=== PATIENT | male | born 1960 ===

== ENCOUNTER 2018-05-27 07:30 | Inpatient (IN) | payer OTHER ==
[~2018-05-27] VITALS: Ht 165.1 cm; Wt 86.2 kg
[2018-07-21] MEDS ORDERED: TAMSULOSIN HCL0.4 MG ORAL (12:16)
[2018-07-22] VITALS (13 sets, daily range): BP systolic 119–149; BP diastolic 63–97
[2018-07-22] MEDS ORDERED: PROSCAR5 MG ORAL (06:52)
[2018-07-22 07:10] LABS: APPEARANCE,URINE CLEAR; BILIRUBIN, URINE NEGATIVE (NEGATIVE); GLUCOSE, URINE (UA) NEGATIVE (NEGATIVE); KETONES,URINE NEGATIVE (NEGATIVE); LEUKOCYTE ESTERASE ,URINE NEGATIVE (NEGATIVE); NITRITE,URINE NEGATIVE (NEGATIVE); PH,URINE 6 (4.5-8.0); PROTEIN,URINE 2+ (NEGATIVE); UROBILINOGEN,URINE NORMAL MG/DL (0.0-1.0)
--- NOTE | 2018-07-22 07:18 | Anethesia Preoperative Eval ---
Anesthesia Pre-op PMH/ROS General Date of Evaluation: Jul 22, 2018 Anesthesiologist: Fred ASA Score: ASA 2 Mallampati Score Class I : Soft palate, uvula, fauces, pillars visible Class II: Soft palate, uvula, fauces visible Class III: Soft palate, base of uvula visible Class IV: Only hard plate visible Mallampati Classification: Class II Surgeon: Dominique Diagnosis: Cervical disc herniation C3-4, C6-7 Surgical Procedure: C3-4 posterior decompression, possible C6-7 post decompression and fusion Anesthesia History: none Family History: no anesthesia problems Allergies: Coded Allergies: AVOCADO (Verified Allergy, Intermediate, 07/21/18) NAUSEA/VOMITING Medications: see eMAR Patient NPO?: Yes NPO Date: Jul 21, 2018 NPO Time: 22:00 Past Medical History Cardiovascular: Denies: HTN, CAD, [place], valve dz, arrhythmia, other Pulmonary: Denies: asthma, COPD, MAUDE, other Gastrointestinal/Genitourinary: Denies: GERD, CRI, ESRD, other Neurologic/Psychiatric: Reports: other - vertigo; Denies: dementia, CVA, depression/anxiety, TIA Endocrine: Denies: DM, hypothyroidism, steroids, other HEENT: Denies: cataract (L), cataract (R), glaucoma, TANGIRNAQ (L), TANGIRNAQ (R), other Hematology/Immune: Denies: anemia, DVT, bleeding disorder, other Musculoskeletal/Integumentary: Denies: OA, RA, DJD, DDD, edema, other PSxH Narrative: ex-lap, cervical sx Anesthesia Pre-op Phys. Exam Physician Exam see chart Constitutional: NAD Cardiovascular: RRR Respiratory: CTA Airway Exam Mallampati Score: Class II MO: full ROM: full Teeth: intact Anesthesia Pre-op A/P Labs see chart Studies Pre-op Studies: EKG - sr, CXR - no acute cardiopulmonary process Risk Assessment & Plan Assessment: ASA II Plan: GA Status Change Before Surgery: No Pre-Antibiotics Drug: Ancef 2g Given Within 1 Hr of Incision: Yes Aiyana Mas MD Jul 22, 2018 07:18
[2018-07-22] MEDS ORDERED: Thrombin 5000 units spray kit TOPIC ONE (07:19)
[2018-07-22] MEDS ORDERED: Bacitracin Oint 15gm Tube TOPIC ONE (07:19)
[2018-07-22] MEDS ORDERED: fentaNYL 100 mcg/2 mL IV ONE ×2 (07:19→07:31)
[2018-07-22] MEDS ORDERED: Bupivacaine 0.5% Inj 30 ml vial INJ ONE (07:20)
[2018-07-22] MEDS ORDERED: Bacitracin 50000 Units Vial ONE (07:20)
[2018-07-22] MEDS ORDERED: Bupivacaine w/Epi 0.5% 30ml Vial INJ ONE (07:20)
[2018-07-22] MEDS ORDERED: Thrombin 5000 units TOPIC ONE ×3 (07:20→07:40)
[2018-07-22 07:21] LABS: COLOR,URINE YELLOW
[2018-07-22] MEDS ORDERED: Gelfoam Size TOPIC ONE (07:21)
[2018-07-22] MEDS ORDERED: Gelfoam Absorbable 1gm powder pkt TOPIC ONE (07:21)
[2018-07-22] MEDS ORDERED: Succinylcholine 20mg/ml 10ml vial ONE (07:22)
[2018-07-22] MEDS ORDERED: Zemuron 50mg/5ml Inj IV ONE (07:22)
[2018-07-22] MEDS ORDERED: Sugammadex Sodium 200mg/2ml vial IV ONE (07:22)
[2018-07-22 07:24] LABS: BASOPHILS % (AUTO) 1.2 % (0.0-2.0); EOSINOPHILS % (AUTO) 10.9 % (0.0-3.0); HEMATOCRIT 39.1 % (42.0-52.0); HEMOGLOBIN 12.2 G/DL (14.2-18.0); LYMPHOCYTES % (AUTO) 20.6 % (20.0-45.0); MEAN CORPUSCULAR VOLUME 80 FL (80-99); MONOCYTES % (AUTO) 8.6 % (1.0-10.0); NEUTROPHILS % (AUTO) 58.7 % (45.0-75.0); PLATELET COUNT 244 K/UL (150-450); RED BLOOD COUNT 4.91 M/UL (4.70-6.10); RED CELL DISTRIBUTION WIDTH 13.5 % (11.6-14.8)
[2018-07-22 07:30] LABS: ANION GAP 8 mmol/L (5-15); BLOOD UREA NITROGEN 17 mg/dL (7-18); CALCIUM 8.7 MG/DL (8.5-10.1); CARBON DIOXIDE 25 MMOL/L (21-32); CHLORIDE 107 MMOL/L (98-107); CREATININE 0.9 MG/DL (0.55-1.30); POTASSIUM 3.9 MMOL/L (3.5-5.1); SODIUM 140 MMOL/L (136-145)
[2018-07-22] MEDS ORDERED: Propofol 1,000mg/ 100ml btl IV ONE (07:30)
[2018-07-22] MEDS ORDERED: Sterile Water Irrig 1000ml IRRIG ONE (07:30)
[2018-07-22] MEDS ORDERED: LR 1000ml ONE (07:30)
[2018-07-22] MEDS ORDERED: Lidocaine 1% MPF 10mg/ml 5ml ONE (07:31)
[2018-07-22] MEDS ORDERED: Midazolam 2mg/2ml Inj ONE (07:31)
[2018-07-22] MEDS ORDERED: Propofol 200mg/20ml IV ONE (07:31)
[2018-07-22] MEDS ORDERED: Dexamethasone 4mg/ml vial ONE (07:32)
[2018-07-22] MEDS ORDERED: Metoclopramide 10mg/2ml Inj ONE (07:32)
[2018-07-22] MEDS ORDERED: Lidocaine 1% Plain 30 ml INJ ONE ×2 (07:34→09:51)
--- NOTE | 2018-07-22 07:38 | Pre-Procedure Note/Attestation ---
Pre-Procedure Note/Attestation Complete Prior to Procedure Planned Procedure: not applicable Procedure Narrative: C3-4 post decompression and fusion and possible C6-7 decompression Indications for Procedure Pre-Operative Diagnosis: Cervical disc hernia Attestation I attest that I discussed the nature of the procedure; its benefits; risks and complications; and alternatives (and the risks and benefits of such alternatives ), prior to the procedure, with the patient (or the patient's legal apprenticeship representative). I attest that, if there was a reasonable possibility of needing a blood transfusion, the patient (or the patient's legal apprenticeship representative) was given the [facility] standardized written summary, pursuant to the Nitesh Felix Blood Safety Act ([place] Health and Safety Code # 1645, as amended). I attest that I re-evaluated the patient just prior to the surgery and that there has been no change in the patient's H&P, except as documented below: MEKHI GOODMAN Jul 22, 2018 07:38
[2018-07-22] MEDS ORDERED: NS Irrig 1000ml IRRIG ONE (08:04)
[2018-07-22] MEDS ORDERED: LORazepam Inj 2mg/ml 1ml IV PRN (09:00)
[2018-07-22] MEDS ORDERED: fentaNYL 100 mcg/2 mL IV PRN (09:00)
[2018-07-22] MEDS ORDERED: LR 1000ml 1,000 ML IVLG SCH (09:00)
[2018-07-22] MEDS ORDERED: Midazolam 2mg/2ml Inj IVP PRN (09:00)
[2018-07-22] MEDS ORDERED: DiphenhydrAMINE 50mg/ml Inj IVP PRN (09:00)
[2018-07-22] MEDS ORDERED: Hydromorphone 0.5mg/0.5ml inj IVP PRN (09:00)
--- NOTE | 2018-07-22 12:22 | Brief Operative Note ---
Immediate Post Operative Note Operative Note Chief Complaint: Cervical disc hernia Pre-op Diagnosis: Cervical disc hernia Procedure: C3-4 decompression fusion Post-op Diagnosis: same as pre-op Findings: consistent w/pre-op dx studies Surgeon: Yaniv Goodman Bin Filler: Claribel Noyola Anesthesiologist: Semaj Anesthesia: general Specimen: none Complications: none Condition: stable Fluids: See anesthesia rec Estimated Blood Loss: volume - 100 Drains: hemovac Implant(s) used?: Yes - RTI Screws and rods MEKHI GOODMAN Jul 22, 2018 12:22
[2018-07-22] MEDS ORDERED: Metoclopramide 10mg/2ml Inj IVP PRN (12:30)
--- NOTE | 2018-07-22 12:39 | Immediate Post-Op Evaluation ---
Immediate Post-Op Evalulation Immediate Post-Op Evalulation Procedure: C3-4 posterior decompression Date of Evaluation: Jul 22, 2018 Time of Evaluation: 12:39 IV Fluids: 2.3L Blood Products: 0 Estimated Blood Loss: 75 Urinary Output: 620 Blood Pressure Systolic: 119 Blood Pressure Diastolic: 67 Pulse Rate: 99 Respiratory Rate: 17 O2 Sat by Pulse Oximetry: 99 Temperature (Fahrenheit): 97 Pain Score (1-10): 0 Nausea: No Vomiting: No Complications 0 Patient Status: awake, reacts, patent, none Hydration Status: adequate Drug: Ancef 2g Given Within 1 Hr of Incision: Yes Aiyana Mas MD Jul 22, 2018 12:39
[2018-07-22] MEDS ORDERED: Tylenol #3 tab (300mg/30mg) ORAL PRN (13:15)
[2018-07-22] MEDS ORDERED: Chloraseptic Spray 20mL Bottle ORAL PRN (13:15)
[2018-07-22] MEDS ORDERED: HYDROcodone/Acetamin 10/325 tab ORAL PRN ×2 (13:15→16:15)
--- NOTE | 2018-07-22 14:26 | Diagnostic Imaging Report ---
INDICATION: Pain, intraoperative TECHNIQUE: Intraoperative imaging Fluoroscopy time: 27.5 seconds Total dose: 0.13167 mGym2 Total number of images: 5 COMPARISON: None FINDINGS: Intraoperative images demonstrate anterior fusion hardware bridging C4 and C5. Subsequent images demonstrate a surgical tool projected over the C3 spinous process. Subsequent images demonstrate posterior fusion hardware bridging C3 and C4 IMPRESSION: Intraoperative imaging, as described
--- NOTE | 2018-07-22 15:00 | NUR ---
NURSE NOTES: Patient is in bed asleep but arousable to verbal stimuli. Patient is stable and denies pain or SOB. Surgical site is clean, dry, and intact. Patient oriented to room, call light and nurses. Patient encouraged to use call light for assistance, verbalized understanding. Patient is on 3L oxygen via NC, tolerated well. Patient is in bed with call light within reach. All needs met at this time. Will continue to monitor.
--- NOTE | 2018-07-22 15:06 | NUR ---
CASE MANAGEMENT: INITIAL REVIEW 07/22/2018 58 YO M [facility] CC: NECK PAIN PMHx: EX LAP. CERVICAL SURGERY SI;CERVICAL DISC HERNIA. T 97.8 HR 76 RR 18 B/P 121/77 SATS 100% ON RA GLU 125 IS: IVF @ 75 mL/HR FLOMAX PO QHS PEPCID PO BID PROSCAR PO QD CEFAZOLIN IV Q8H PATIENT ADMITTED TO MED/SURG 07/22/2018 @ 1222 DCP: PATIENT TO BE DISCHARGED TO HOME ONCE MEDICALLY CLEARED. PLAN OF CARE: POST OP CARE PT EVAL Addendum: 07/22/18 at 1740 by Gisela Lorenz CM INTERQUAL
[2018-07-22] MEDS ORDERED: Hydromorphone 0.5mg/0.5ml inj SUBQ PRN (15:15)
[2018-07-22] MEDS: ceFAZolin sod 1 GM in D5W 55 ML IV SCH (16:43)
--- NOTE | 2018-07-22 18:15 | NUR ---
NURSE NOTES: Dr. Peace aware of fc removal. New orders to give flomax and finasteride x1. Will administer as ordered. Patient is stable, does not complain of pain or discomfort. Will continue to monitor.
[2018-07-22] MEDS: Docusate 100mg cap ORAL SCH (18:26)
[2018-07-22] MEDS: Bethanechol 25mg Tab ORAL SCH (18:26)
[2018-07-22] MEDS ORDERED: Tamsulosin 0.4mg cap ORAL SCH ×3 (18:30→21:00)
--- NOTE | 2018-07-22 19:16 | NUR ---
NURSE NOTES: hemovac is draining well throughout shift. 15:00= 0cc, 17:00=25cc, 19:00=35cc
--- NOTE | 2018-07-22 19:30 | NUR ---
HAND-OFF: Report given to Kulwant BERGERON. Patient is stable.
--- NOTE | 2018-07-22 19:45 | NUR ---
NURSE NOTES: Pt lying in bed w/bed in lowest position and call light within reach. Pt A&Ox4; VSS; neuro check stable; and in no apparent distress. IV site intact/asymptomatic w/IVF @ 75 ml/hr; surgical site stained but otherwise C/D/I; and hemovac intact/compressed. Will continue to monitor.
--- NOTE | 2018-07-22 21:07 | Consultation ---
History of Present Illness General Date patient seen: Jul 22, 2018 Time patient seen: 21:04 Present Illness Allergies: Coded Allergies: AVOCADO (Verified Allergy, Intermediate, 07/21/18) NAUSEA/VOMITING Medication History Scheduled Finasteride* (Proscar*), Unknown Dose ORAL DAILY, (Reported) Tamsulosin Hcl (Tamsulosin Hcl*), 0.4 MG ORAL BEDTIME, (Reported) Patient History Healthcare decision maker sam dickey - son Resuscitation status Full Code Advanced Directive on File Review of Systems Constitutional: Reports: no symptoms Eye: Reports: no symptoms ENT: Reports: other Genitourinary: Reports: no symptoms Musculoskeletal: Reports: other - has pain Physical Exam General Appearance: WD/WN HEENT: normocephalic Neck: other - has soft cervical collar Respiratory/Chest: lungs clear Cardiovascular/Chest: normal rate, regular rhythm Abdomen: normal bowel sounds, non tender, soft Extremities: other - no clubbing Neurologic: other - alert awware oriented Last 24 Hour Vital Signs Date Time Temp Pulse Resp B/P (MAP) Pulse Ox O2 Delivery O2 Flow Rate FiO2 07/22/18 20:00 97.1 66 17 129/63 (85) 98 07/22/18 16:00 98.0 107 15 145/97 (113) 100 07/22/18 15:00 97.8 105 16 146/97 (113) 96 07/22/18 14:40 97.2 19 139/87 99 Nasal Cannula 3 07/22/18 14:15 16 132/86 97 Nasal Cannula 3 07/22/18 14:00 18 121/91 98 Nasal Cannula 3 07/22/18 13:40 17 122/80 97 Nasal Cannula 3 07/22/18 13:20 17 147/94 100 Nasal Cannula 3 07/22/18 13:15 15 129/89 100 Nasal Cannula 3 07/22/18 13:00 16 149/90 99 Simple Mask 6 07/22/18 12:45 19 126/76 99 Simple Mask 6 07/22/18 12:39 99 17 99 07/22/18 12:34 97.0 17 119/67 99 Simple Mask 6 07/22/18 07:15 97.8 76 18 121/77 (92) 100 07/22/18 07:05 Room Air Intake and Output 07/21/18 07/22/18 18:59 06:59 # Voids 1 Laboratory Tests Test 07/22/18 06:30 07/22/18 07:06 Urine Color Yellow Urine Appearance Clear Urine pH 6 (4.5-8.0) Urine Specific [place] 1.020 (1.005-1.035) Urine Protein 2+ (NEGATIVE) H Urine Glucose (UA) Negative (NEGATIVE) Urine Ketones Negative (NEGATIVE) Urine Blood 1+ (NEGATIVE) H Urine Nitrite Negative (NEGATIVE) Urine Bilirubin Negative (NEGATIVE) Urine Urobilinogen Normal MG/DL (0.0-1.0) Urine Leukocyte Esterase Negative (NEGATIVE) Urine RBC 0-2 /HPF (0 - 0) H Urine WBC 0-2 /HPF (0 - 0) Urine Squamous Epithelial Cells Occasional /LPF Urine Bacteria Occasional /HPF (NONE) White Blood Count 8.0 K/UL (4.8-10.8) Red Blood Count 4.91 M/UL (4.70-6.10) Hemoglobin 12.2 G/DL (14.2-18.0) L Hematocrit 39.1 % (42.0-52.0) L Mean Corpuscular Volume 80 FL (80-99) Mean Corpuscular Hemoglobin 24.8 PG (27.0-31.0) L Mean Corpuscular Hemoglobin Concent 31.1 G/DL (32.0-36.0) L Red Cell Distribution Width 13.5 % (11.6-14.8) Platelet Count 244 K/UL (150-450) Mean Platelet Volume 7.2 FL (6.5-10.1) Neutrophils (%) (Auto) 58.7 % (45.0-75.0) Lymphocytes (%) (Auto) 20.6 % (20.0-45.0) Monocytes (%) (Auto) 8.6 % (1.0-10.0) Eosinophils (%) (Auto) 10.9 % (0.0-3.0) H Basophils (%) (Auto) 1.2 % (0.0-2.0) Prothrombin Time 10.7 SEC (9.30-11.50) Prothromb Time International Ratio 1.0 (0.9-1.1) Activated Partial Thromboplast Time 29 SEC (23-33) Sodium Level 140 MMOL/L (136-145) Potassium Level 3.9 MMOL/L (3.5-5.1) Chloride Level 107 MMOL/L (98-107) Carbon Dioxide Level 25 MMOL/L (21-32) Anion Gap 8 mmol/L (5-15) Blood Urea Nitrogen 17 mg/dL (7-18) Creatinine 0.9 MG/DL (0.55-1.30) Estimat Glomerular Filtration Rate > 60 mL/min (>60) Glucose Level 125 MG/DL (74-106) H Calcium Level 8.7 MG/DL (8.5-10.1) Height (Feet): 5 Height (Inches): 5.00 Weight (Pounds): 190 Medications Current Medications Medications (Trade) Dose Ordered Sig/Greg Route PRN Reason Start Time Stop Time Status Last Admin Dose Admin Acetaminophen/ Hydrocodone Bitart ([place] 10/325) 1 tab Q3H PRN ORAL Pain Scale (3-6) / fever 07/22/18 16:15 07/29/18 16:14 Al Hydroxide/Mg Hydroxide (Mylanta) 30 ml Q6H PRN ORAL GERD 07/22/18 13:15 08/21/18 13:14 Bethanechol Chloride (Urecholine) 25 mg THREE TIMES A DAY ORAL 07/22/18 18:00 08/21/18 17:59 07/22/18 18:26 Cefazolin Sodium 1 gm/Dextrose 55 ml @ 110 mls/hr Q8H IV 07/22/18 16:30 07/29/18 16:29 07/22/18 16:43 Dextrose/ Electrolytes 1,000 ml @ 75 mls/hr [id number] IV 07/22/18 15:00 08/21/18 14:59 07/22/18 15:36 Diphenhydramine HCl (Benadryl) 12.5 mg Q6H PRN ORAL Itching 07/22/18 16:00 08/21/18 15:59 Docusate Sodium (Colace) 100 mg TWICE A DAY ORAL 07/22/18 18:00 08/21/18 17:59 07/22/18 18:26 Famotidine (Pepcid) 20 mg BID ORAL 07/22/18 18:00 08/21/18 17:59 07/22/18 18:26 Finasteride (Proscar) 5 mg DAILY ORAL 07/23/18 09:00 4/6/19 08:59 Hydromorphone HCl (Dilaudid) 0.5 mg Q3H PRN SUBQ Severe Breakthru Pain (>7) 07/22/18 15:15 07/29/18 15:14 Metoclopramide HCl (Reglan) 10 mg Q6H PRN IVP Nausea & Vomiting 07/22/18 12:30 08/21/18 12:29 Ondansetron HCl (Zofran) 4 mg Q4H PRN IVP Nausea & Vomiting 07/22/18 13:15 08/21/18 13:14 Phenol/Menthol (Chloraseptic) 1 spray Q3H PRN ORAL SORE THROAT 07/22/18 13:15 08/21/18 13:14 Tamsulosin HCl (Flomax) 0.4 mg BEDTIME ORAL 07/22/18 21:00 08/21/18 20:59 Assessment/Plan Status Narrative s/p cervical spine fusion has a hemovac history of GSbph resume flomax and proscar pain control pt ot perioperative antibiotic prophylaxis. Ron Rahmna MD Jul 22, 2018 21:06
--- NOTE | 2018-07-22 21:15 | NUR ---
NURSE NOTES: Pt voided about 775 ml of clear, yellow urine without difficulty. Will continue to monitor.
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
[2018-07-23] VITALS: BP 104/79
[2018-07-23] MEDS: ceFAZolin sod 1 GM in D5W 55 ML IV SCH ×2 (00:05→08:16)
[2018-07-23 04:00] VITALS: BP 105/64
--- NOTE | 2018-07-23 07:29 | NUR ---
HAND-OFF: Report given to ELYSSA Zhou.
--- NOTE | 2018-07-23 07:32 | Progress Note ---
DATE: 07/23/2018 ACUTE PAIN MANAGEMENT PHYSICIAN PROGRESS NOTE MEDICATIONS: Medication administration record reviewed. Medication include Flomax, Chloraseptic spray, Zofran, Reglan, subcutaneous Dilaudid, Mcdonald, Pepcid, Colace, Benadryl, Urecholine, Mylanta, and IV fluids. LABORATORY STUDIES: No interval laboratory studies. OBJECTIVE: VITAL SIGNS: Within normal limits. Afebrile, pulse 98, respirations 18, blood pressure 104/79, and oxygen saturation 98% on supplemental oxygen. I spent over 65 minutes in consultation today. I saw the patient at the bedside with the nurse RN, Kulwant, who interpreted Haitian. The Hayes catheter was removed last night and the patient was dosed with extra doses of Proscar and Flomax along Urecholine to help avoid urinary retention issues. The patient been able to void urine without difficulties and without significant residuals. The patient has been breathing comfortably. There have been no respiratory problems overnight with doses of both the subcutaneous Dilaudid and the oral Mcdonald. I did give prescription for Mcdonald for outpatient usage. The patient states that he is hungry. He has had no nausea symptoms. We will start him on clear liquids now and advance his diet quickly. The patient was trained with physical therapy later today. If he does successfully with physical therapy training, I would agree with Dr. Fox, for discharge trial home to the son later today. I did leave a prescription for 50 tablets of Mcdonald for outpatient usage. The patient is breathing comfortably. I will discontinue the supplemental oxygen. I will continue the IV fluids for now, though the patient shows that he is able to tolerate oral intake without problems. The Chloraseptic sprays at the bedside for topical relief. The patient has been compliant using his incentive spirometer. With the nurse RN, Kulwant, at the bedside, the patient was moved to a sitting position, so I could examine the posterior cervical wound. Output from the indwelling posterior cervical spine drain catheter overnight was 40 mL. I removed the soft neck collar to reveal the posterior cervical spine wound. The dressing was intact and dry. I cut the suture holding in the indwelling posterior cervical spine drain catheter. Then, at the end-expiration, with the Hemovac drain taken off of suction, I personally removed the indwelling posterior cervical spine drain catheter. The tip was intact. Alcohol swab was applied generously to the drain hole site. A 4 x 4 sterile gauze was then applied over the drain hole site and the incision line covered with Steri-Strips, followed by a sterile and 6 x 6 border gauze dressing. There were no complications. The soft collar was replaced without problems. The patient appears neurologically intact grossly. Ron Peace M.D. DR: CESAR JOB#: [id number] CC:
--- NOTE | 2018-07-23 07:34 | NUR ---
NURSE NOTES: Report received from ELYSSA Blum. Pt in bed, awake, talkative, A/O x4, no complaints of pain, no apparent distress noted, assisted pt to bathroom, discussed plan of care and today's care goals. Bed in lowest position, call light within reach.
[2018-07-23 08:00] VITALS: BP 100/66
[2018-07-23] MEDS: Bethanechol 25mg Tab ORAL SCH (08:16)
[2018-07-23] MEDS: Docusate 100mg cap ORAL SCH (08:16)
--- NOTE | 2018-07-23 09:40 | NUR ---
PT EVALUATION NOTE Patient seen for initial PT evaluation. Patient demonstrates independent functional mobility with transfers and ambulation without an assistive device. Patient able to negotiate one flight of stairs holding one rail independently. Skilled inpatient PT intervention not indicated, patient discharged from PT, Winnie BERGERON notified. Anticipate discharge home with family assistance as needed once cleared by MD. No DME needs anticipated at this time.
--- NOTE | 2018-07-23 11:09 | 48 Hour Post Anesthesia Eval ---
Post Anesthesia Evaluation Procedure: C3-4 posterior decompression Date of Evaluation: Jul 23, 2018 Time of Evaluation: 11:08 Blood Pressure Systolic: 104 0: 68 Pulse Rate: 74 Respiratory Rate: 20 Temperature (Fahrenheit): 97.6 O2 Sat by Pulse Oximetry: 98 Airway: patent Nausea: No Vomiting: No Pain Intensity: 3 Hydration Status: adequate Cardiopulmonary Status: stable Mental Status/LOC: patient returned to baseline Follow-up Care/Observations: n/a Post-Anesthesia Complications: none Follow-up care needed: N/A Ok Helms MD Jul 23, 2018 11:09
[2018-07-23 12:00] VITALS: BP 122/72
[2018-07-23] MEDS ORDERED: Tubing IV Secondary IV ONE (12:29)
--- NOTE | 2018-07-23 12:39 | NUR ---
NURSE NOTES: Pt discharged home with all belongings, pt given RX for hard collar and Pain medication Rx. IV removed ID band removed, pt ambulatory, stable for discharge home, accompanied by son, Rei
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
== END 2018-07-23 12:30 | disposition home or self-care (01) | DRG 473 ==
LOC: SDSOVERFLO 07-22 06:15 → 3E 07-22 14:25
PROC: 4A11X4G Monitoring of Peripheral Nervous Electrical Activity, Intraoperative, External Approach (ICD-10-PCS; principal; 2018-07-22 07:30)
PROC: 0RG207J Fusion of 2 or more Cervical Vertebral Joints with Autologous Tissue Substitute, Posterior Approach, Anterior Column, Open Approach (ICD-10-PCS; principal; 2018-07-22 07:30)
PROC: 01N10ZZ Release Cervical Nerve, Open Approach (ICD-10-PCS; principal; 2018-07-22 07:30)
DX: M50.01 Cervical disc disorder with myelopathy, high cervical region (principal); V89.2XXS Person injured in unspecified motor-vehicle accident, traffic, sequela; N40.0 Benign prostatic hyperplasia without lower urinary tract symptoms; E66.9 Obesity, unspecified; M48.02 Spinal stenosis, cervical region; G89.18 Other acute postprocedural pain; Z68.31 Body mass index [BMI] 31.0-31.9, adult
CPT/HCPCS: 36415; 72040; 76000; 80048; 81001; 85025; 85610; 85730; 86850; 86900; 86901; 87081; 94003; 94150; J2250; J2405; J2765